=== PATIENT | female | born 1990 | race Caucasian/White ===

== ENCOUNTER 2025-06-01 15:49 | Outpatient (AMB) | payer OTHER, SELFPAY ==
--- NOTE | 2025-06-01 15:57 | MHC.PC.OV ---
Vital Signs 06/01/25 15:59 Height 5 ft 8.5 in Weight 163 lb 4 oz BMI 24.5 BP 122/74 Blood Pressure Location Lt brachial Position Sitting Pulse 67 Pulse Source Pulse Oximeter Temp 97.3 F Temp Source Temporal Artery Scan Pulse Oximetry (%) 98 Oxygen Delivery Method Room Air Intake Visit Reasons: New Patient depression Intake Note: Patient is a new patient here to establish care for Depression, Anxiety, Insomnia, Low testosterone, Chronic back pain. Transferring care from [facility]. Medical records have been requested and have not received. Bargain Table Clerk Required: No Family Service Caseworker: Not Required per policy Accompanied by: Self / Same As Patient Allergies No Known Allergies Allergy (Verified 06/01/25 16:04) Medication List - Last Reconciled 06/01/25 by Gab Vega MD buspirone 15 mg PO BID testosterone cypionate 40 mg IM QWEEK trazodone 100 mg PO BEDTIME venlafaxine ER 112.5 mg PO DAILY Tobacco use date assessed: 06/01/25 Dental Screening Dental Screen Date: 06/01/25 Did you have a dental visit in the last 12 months?: Yes Did you have a dental problem in the last 6 months where you did not have access to dental care?: No Was dental information given to patient?: Patient has dentist HPI HPI Comments History of Present Illness Details The patient is a 35-year-old transgender male presenting for a new patient visit to establish primary care. The primary reason for the visit is to obtain referrals for ongoing specialty care due to insurance requirements, as his primary insurance, [employer], requires a primary care provider referral to [facility] [place]. The patient has a history of depression and is managed on venlafaxine, trazodone, and buspirone. He receives medication management from a [facility] psychiatrist, Dr. Stanley Alexandre, and is also undergoing Dialectical Behavior Therapy (DBT) with Patrice Wilde at [facility] in [place], where he has completed about five sessions. The patient reports chronic lower back pain due to a prolonged injury. For this condition, he is engaged in physical therapy at the [facility] and receives acupuncture at [facility] in [place]. He receives hormonal therapy, including weekly testosterone injections, under the care of an kennel technician at the [facility]. The patient is an active duty member. He denies any history of smoking or marijuana use and reports occasional alcohol consumption. He reports being up-to-date with vaccinations and had laboratory tests performed at the [facility] two days prior to this visit, with labs typically drawn every six months. [facility] Surgical History (Updated 06/01/25 @ 16:10 by MARV Beard) History of hysterectomy Family History (Updated 06/01/25 @ 16:10 by MARV Beard) Other Mental health disorder Substance use disorder Social History (Updated 06/01/25 @ 16:10 by MARV Beard) Housing: House Alcohol intake: current Alcohol intake frequency: a few times a week Patient Tobacco Use Status: Never used Tobacco e-Cigarette/Vaping Use: Never Used Second Hand Smoke Exposure: No service: Yes ([employer]) Current occupational status: employed Cognitive needs: No Hearing needs: No Vision needs: No Questionnaire PHQ-9 Over the last 2 weeks, how often have you been bothered by any of the following problems? 1. Little interest or pleasure in doing things: nearly every day 2. Feeling down, depressed, or hopeless: nearly every day 3. Trouble falling or staying asleep, or sleeping too much: nearly every day 4. Feeling tired or having little energy: nearly every day 5. Poor appetite or overeating: nearly every day 6. Feeling bad about yourself - or that you are a failure or have let yourself or your family down: more than half the days 7. Trouble concentrating on things, such as reading the newspaper or watching television: nearly every day 8. Moving or speaking so slowly that other people could have noticed. Or the opposite - being so fidgety or restless that you have been moving around a lot more than usual: more than half the days 9. Thoughts that you would be better off or of hurting yourself in some way: not at all Total score: 22 Depression Screening Interpretation: Positive Depression Screening Follow-up: Existing condition and In treatment Depression Screening Done: Yes Source: Developed by Drs. Kush Alfaro, Elly Marshall, Edvin Urbina and colleagues, with an educational amanda from [employer]. Thrive Questionnaire Date Thrive assessed: 06/01/25 I am a: Patient What is your living situation today?: I have a steady place to live Within the past 12 months, did the food you bought not last and you didn't have the money to get more?: Never true Within the past 12 months, did you worry whether your food would run out before you got money to buy more?: Never true Do you have trouble paying for medicines?: No Do you have trouble getting transportation to medical appointments?: No Do you have trouble paying your heating and electricity bill?: No Do you have trouble taking care of your child, family member or friend?: No Do you have trouble with day-to-day activities such as bathing, preparing meals, shopping, managing finances, etc.?: No Are you currently unemployed and looking for a job?: No Are you interested in more education?: No Please select the resources that you would like help with: None Currently or been in a relationship where the following occur: No concerns reported THRIVE Score: 0 AUDIT C Alcohol Use Questionnaire (AUDIT-C) 1. How often do you have a drink containing alcohol?: 2-4 times a month 2. How many drinks containing alcohol do you have on a typical day when you are drinking?: 3 or 4 3. How often do you have six or more drinks on one occasion?: Less than monthly Total Score: 4 ZAHIDA-7 AMB Questionnaire ZAHIDA-7 Date ZAHIDA - 7 assessed: 06/01/25 Feeling nervous, anxious, or on edge: 3 = Nearly every day Not being able to stop or control worryin = Nearly every day Worrying too much about different things: 3 = Nearly every day Trouble relaxin = Nearly every day Being so restless that it is hard to sit still: 3 = Nearly every day Becoming easily annoyed or irritable: 3 = Nearly every day Feeling afraid as if something awful might happen: 2 = More than half the days Total ZAHIDA-7 score (0-4 normal; 5-9 mild; 10-14 moderate; 15-21 severe): 20 Source: Developed by Drs. Kush Alfaro, Elly Marshall, Edvin Urbina and colleagues, with an educational amanda from [employer]. Review of Systems Const Details: As per HPI Physical exam (Primary Care) Vital Signs: Last Vital Signs Temp 97.3 F 06/01/25 15:59 Pulse 67 06/01/25 15:59 BP 122/74 06/01/25 15:59 Pulse Ox 98 06/01/25 15:59 Oxygen Delivery Method Room Air 06/01/25 15:59 BMI result Body Mass Index 24.5 Tobacco/Smoking Status: Tobacco use Status Tobacco use date assessed 06/01/25 06/01/25 16:02 Patient Tobacco Use Status Never used Tobacco 06/01/25 16:10 e-Cigarette/Vaping Use Never Used 06/01/25 16:10 PHQ-9: PHQ-9 Score PHQ-9: Total score 22 06/01/25 16:08 Depression Screening Interpretation: Positive Depression Screening Follow-up: Existing condition and In treatment Thrive Assessment: Date of Thrive Assessment Date Thrive assessed 06/01/25 06/01/25 16:02 Currently or been in a relationship where the following occur: No concerns reported Const Other: Pertinent findings are in BOLD GENERAL APPEARANCE NAD, activity normal for age, well developed/ well nourished, no cyanosis, pallor, or diaphoresis. EYES lids/conjunctiva normal. EARS/NOSE/THROAT Mucous membranes moist, nares normal, lips/teeth normal uvula midline without oral pharyngeal erythema, exudate or swelling TMs normal bilaterally. No lymphangitis/lymphedema. HEAD/NECK normocephalic atraumatic, no facial trauma, neck is supple. RESPIRATORY respiratory effort normal, speaks in full sentences, no tripod position, no accessory muscle use. Lungs clear to auscultation without rhonchi, wheezes, rales CARDIAC Regular rate and rhythm, no edema. ABDOMINAL Soft, ND/NT. No evidence of fluid wave. No pulsatile masses on exam, rebound tenderness, Veras sign or pain over Mcburney's point. MUSCLES/EXTREMITIES No abnormal range of motion, no swelling. SKIN Warm, pink and dry. No rashes, dermatoses, petechiae or lesions. NEUROLOGICAL Speech is clear and appropriate. Normal level of consciousness. Gait and coordination are normal. 5/5 strength in all extremities. PSYCH Normal mood and affect. Judgement/competence is appropriate Coding Level of Care Code New Pt Level 4 (38250) Diagnoses Current moderate episode of major depressive disorder, unspecified whether recurrent F32.1 Depression Type: major depressive disorder Major depression recurrence: unspecified whether recurrent Active/Remission status: currently active Major depression episode severity: moderate Gender dysphoria F64.9 Health care maintenance Z00.00 Chronic midline low back pain without sciatica M54.50; G89.29 Chronicity: chronic Back pain laterality: midline Sciatica presence: without sciatica Time Spent (min) 30 Assessment & Plan Assessment & Plan (1) Depression: Code(s): F32.A - Depression, unspecified Category: Medical Qualifiers: Depression Type: major depressive disorder Major depression recurrence: unspecified whether recurrent Active/Remission status: currently active Major depression episode severity: moderate Qualified Code(s): F32.1 - Major depressive disorder, single episode, moderate Plan: - Continue current medications: venlafaxine, trazodone, and buspirone. - Place referral to the [place] for psychiatry to continue medication management with Dr. Stanley Alexandre. - Place referral to [facility] in [place] to continue Dialectical Behavior Therapy (DBT) with therapist Patrice Wilde. (2) Gender dysphoria: Comment: s/p Hormonal therapy Code(s): F64.9 - Gender identity disorder, unspecified Category: Medical Plan: - Continue weekly testosterone injections as prescribed. - Place referral to Endocrinology at the [facility] for continued management of hormonal therapy. (3) Health care maintenance: Code(s): Z00.00 - Encounter for general adult medical examination without abnormal findings Category: Medical Plan: CBC, CMP, Lipid panel, A1C, TSH w T4, vit D. recently done at the [facility]. Asked patient to provide us with recent [facility]. Shingles 2 doses when >50 yo. At 50. COVID: two doses. Next visit. Pneumococcal: >50 yo. 18-49 with CKD, lung disease, weakened immune system, Heart disease, DM, cochlear implant. NI. Flu vaccine: Next visit. Tdap: every 10 years. Next visit. Colonoscopy: 45-75. at 45. AAA: 65 -75. NI. CT lun - 80. NI. HIV: Next visit. HCV: Next visit. (4) Low back pain: Code(s): M54.50 - Low back pain, unspecified Category: Medical Qualifiers: Chronicity: chronic Back pain laterality: midline Sciatica presence: without sciatica Qualified Code(s): M54.50 - Low back pain, unspecified; G89.29 - Other chronic pain Plan: - [facility] to [facility] ongoing treatment. - Place referral for acupuncture to continue care at [facility] in [place]. Plan I have seen the patient today for a new patient visit to establish care. The main purpose of the visit was to obtain referrals for his ongoing specialty care, including psychiatry, therapy, physical therapy, endocrinology, and acupuncture, which are required by his insurance to continue seeing his providers at the [facility] and in the community. I explained that placing referrals to the [facility] can be difficult as it is a closed system, but I would submit them with detailed free-text notes. I advised him to let our office know if there are any issues with the referrals so we can address them. We will request his recent lab work from the [facility] and plan for a follow-up appointment in six months to ensure continuity of care. Orders: Orders PT Evaluation and Treatment Today M54.50 - Low back pain, unspecified Referrals Behavioral Health Referral F32.A - Depression, unspecified Accupuncture Referral M54.50 - Low back pain, unspecified Psychiatry Referral F32.A - Depression, unspecified Endocrinology Referral F64.9 - Gender identity disorder, unspecified
[2025-06-01 15:59] VITALS: BP 122/74; PULSE 67; TEMP 36.3; O2SAT 98; BMI 24.5
--- OUTSIDE RECORDS SUMMARY | 2025-06-01 18:31 | XMS_ITS | Patient Health Record ---
Author Organization [facility] Address [address] [place], [place] [id number] Care Team Providers Care Private Investigator Surveillance Name Role Phone Hetal Macario Primary Care Provider Arik Serra Unavailable [phone] Reason For Referral No Information Medications Medication SIG (Take, Route, Frequency, Duration) Notes Start Date End Date Status BD Luer-Lexie Syringe 25G X 5/8 1 SC Every week 03/09/2017 Active Testosterone Cypionate 200 MG/ML 0.4 ml Intramuscular Every week 09/13/2015 Active BD Luer-Lexie Syringe 21G X 1 as directed Every two weeks 09/13/2015 Active Problems Problem Type SNOMED Code ICD Code Onset Dates Problem Status W/U Status Risk Notes Problem Gender identity disorder ([id number]) 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) Active confirmed wishes to change to sc Plan Of Treatment Pending Test Test Name Order Date ESTRADIOL 09/08/2016 TESTOSTERONE TOTAL 12/12/2015 TESTOSTERONE TOTAL 03/09/2017 TESTOSTERONE TOTAL 09/08/2016 TESTOSTERONE TOTAL 09/13/2015 Estradiol 09/13/2015 Estradiol 03/09/2017 Estradiol 12/12/2015 CBC/Differential (No Platelet) 6 CBC/Differential (No Platelet) 7 CBC w/ Differential, w/ Platelet 017 Medical (General) History Medical History History ICD Code atrial fibrillation No anxiety disorder No arthritis No hiatal hernia No gout No asthma No depression No thyromegaly No carpal tunnel No neuropathy No seizures No hepatitis C No kidney stones No heart murmur No esophageal reflux No osteoporosis No irritable bowel syndrome No cancer, prostate No cancer, breast No sleep disorder, chronic No stroke (thrombotic) No Surgical History Surgery Date(Month/Year) hysterectomy bilateral oopherectomy 2015
== END 2025-06-01 16:42 | disposition home or self-care (01) ==
LOC: HO.HMCH 15:49
PROVIDERS: PCP Internal Medicine; Visit Provider Internal Medicine
DX: F32.1 Major depressive disorder, single episode, moderate (principal); F64.9 Gender identity disorder, unspecified; Z00.00 Encounter for general adult medical examination without abnormal findings; M54.50 Low back pain, unspecified; G89.29 Other chronic pain

== ENCOUNTER → 2025-06-01 15:49 | Outpatient (BNVA) | payer OTHER, SELFPAY | PROVIDERS: Visit Provider Internal Medicine | DX: F32.1 Major depressive disorder, single episode, moderate (principal); F64.9 Gender identity disorder, unspecified; Z13.31 Encounter for screening for depression; Z13.39 Encounter for screening examination for other mental health and behavioral disorders; M54.50 Low back pain, unspecified; G89.29 Other chronic pain | CPT/HCPCS: 96127; 99202 ==

== ENCOUNTER 2025-07-13 16:45 | Outpatient (AMB) | payer OTHER, SELFPAY ==
[2025-07-13 16:48] VITALS: BP 116/68; PULSE 64; RESP 18; O2SAT 99; BMI 25.2
--- NOTE | 2025-07-13 16:48 | A.OFFPC_ITS ---
Vital Signs 07/13/25 16:48 Height 5 ft 8.5 in Weight 168 lb 8 oz BMI 25.2 BP 116/68 Blood Pressure Location Lt brachial Position Sitting Respiration 18 Pulse 64 Pulse Source Pulse Oximeter Temp Source Temporal Artery Scan Pulse Oximetry (%) 99 Oxygen Delivery Method Room Air Intake Visit Reasons: FOLLOW UP ON BACK PAIN Quality Control Auditor Required: No Accompanied by: Self / Same As Patient Allergies No Known Allergies Allergy (Verified 07/13/25 16:48) Tobacco use date assessed: 07/13/25 Dental Screening Dental Screen Date: 07/13/25 Did you have a dental visit in the last 12 months?: Yes Did you have a dental problem in the last 6 months where you did not have access to dental care?: No Was dental information given to patient?: Patient has dentist HPI HPI Comments History of Present Illness Details The patient is a 35 year old transgender Male with PMH of MDD, back pain, and right hip pain. The patient presented today to get an extension of his medical profile related to physical fitness test at the [employer]. The patient suffers from a longstanding back and right hip injury (reported in [facility] records). He is engaged with physical therapy at the [facility] and receives acupuncture at [facility] in [place]. The patient was provided a similar profile from a [facility] provider (Nat Alicea) in 04/05/2025-07/05/2025. The patient reports worsening pain during physical activity especially during physical fitness test. He was also evaluated by his Psych team at the [facility] (Temitope Frazier and Caitlin Calderon), who reported that the patient's PTSD and major depressive disease would get worse if the patient gets engaged with physical fitness activity at his workplace. Their assessment was based on the patient's report of worsening symptoms during physical fitness test. Based on the patient prior profile (04/05/2025- 07/05/2025), current assessment provided by his psych team and his current report of worsening pain related to fitness activity we will extend the patient's profile for another 90 days. PFSH Surgical History History of hysterectomy Family History Other Mental health disorder Substance use disorder Social History Housing: House Alcohol intake: current Alcohol intake frequency: a few times a week Patient Tobacco Use Status: Never used Tobacco e-Cigarette/Vaping Use: Never Used Second Hand Smoke Exposure: No service: Yes ([employer]) Current occupational status: employed Cognitive needs: No Hearing needs: No Vision needs: No Questionnaire Thrive Questionnaire Date Thrive assessed: 07/13/25 I am a: Patient What is your living situation today?: I have a steady place to live Within the past 12 months, did the food you bought not last and you didn't have the money to get more?: Never true Within the past 12 months, did you worry whether your food would run out before you got money to buy more?: Never true Do you have trouble paying for medicines?: No Do you have trouble getting transportation to medical appointments?: No Do you have trouble paying your heating and electricity bill?: No Do you have trouble taking care of your child, family member or friend?: No Do you have trouble with day-to-day activities such as bathing, preparing meals, shopping, managing finances, etc.?: No Are you currently unemployed and looking for a job?: No Are you interested in more education?: No Please select the resources that you would like help with: None Currently or been in a relationship where the following occur: No concerns reported THRIVE Score: 0 ZAHIDA-7 AMB Questionnaire ZAHIDA-7 Date ZAHIDA - 7 assessed: 06/01/25 Source: Developed by Drs. Kush Alfaro, Elly Marshall, Edvin Urbina and colleagues, with an educational amanda from [employer]. Review of Systems Const Details: As per HPI. Physical exam (Primary Care) Vital Signs: Last Vital Signs Pulse 64 07/13/25 16:48 Resp 18 07/13/25 16:48 BP 116/68 07/13/25 16:48 Pulse Ox 99 07/13/25 16:48 Oxygen Delivery Method Room Air 07/13/25 16:48 BMI result Body Mass Index 25.2 Tobacco/Smoking Status: Tobacco use Status Tobacco use date assessed 07/13/25 07/13/25 16:54 Patient Tobacco Use Status Never used Tobacco 07/13/25 16:54 e-Cigarette/Vaping Use Never Used 07/13/25 16:54 Thrive Assessment: Date of Thrive Assessment Date Thrive assessed 07/13/25 07/13/25 16:54 Currently or been in a relationship where the following occur: No concerns reported Const Other: Pertinent findings are in BOLD GENERAL APPEARANCE NAD, activity normal for age, well developed/ well nourished, no cyanosis, pallor, or diaphoresis. EYES lids/conjunctiva normal. EARS/NOSE/THROAT Mucous membranes moist, nares normal, lips/teeth normal uvula midline without oral pharyngeal erythema, exudate or swelling TMs normal bilaterally. No lymphangitis/lymphedema. HEAD/NECK normocephalic atraumatic, no facial trauma, neck is supple. RESPIRATORY respiratory effort normal, speaks in full sentences, no tripod position, no accessory muscle use. Lungs clear to auscultation without rhonchi, wheezes, rales CARDIAC Regular rate and rhythm, no edema. ABDOMINAL Soft, ND/NT. No evidence of fluid wave. No pulsatile masses on exam, rebound tenderness, Veras sign or pain over Mcburney's point. MUSCLES/EXTREMITIES No abnormal range of motion, no swelling. SKIN Warm, pink and dry. No rashes, dermatoses, petechiae or lesions. NEUROLOGICAL Speech is clear and appropriate. Normal level of consciousness. Gait and coordination are normal. 5/5 strength in all extremities. PSYCH Normal mood and affect. Judgement/competence is appropriate Coding Level of Care Code Est Pt Level 4 (42266) Diagnoses Chronic midline low back pain without sciatica M54.50; G89.29 Chronicity: chronic Back pain laterality: midline Sciatica presence: without sciatica Right hip pain M25.551 Time Spent (min) 45 Assessment & Plan Assessment & Plan (1) Low back pain: Code(s): M54.50 - Low back pain, unspecified Category: Medical Qualifiers: Chronicity: chronic Back pain laterality: midline Sciatica presence: without sciatica Qualified Code(s): M54.50 - Low back pain, unspecified; G89.29 - Other chronic pain Plan: Patient reports history of low back pain. - This condition [facility] - Treatment plan: accupuncture, PT. - The patient's medical profile (04/05/2025- 07/05/2025) extended to 07/14/2025- 10/12/2024. - We will continue assesment every three months. (2) Right hip pain: Code(s): M25.551 - Pain in right hip Category: Medical Plan: Same as under low back pain. Plan Patient presented for extension of medical profile related to physical fitness test which was provided to the patient. The patient physical fitness test has been affecting the patient's mental health as reported in [facility] psychology assessment and his physical health as reported in his prior medical profile.
--- OUTSIDE RECORDS SUMMARY | 2025-07-13 19:48 | XMS_ITS | Patient Health Record ---
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
== END 2025-07-13 17:14 | disposition home or self-care (01) ==
LOC: HO.HMCH 16:45
PROVIDERS: PCP Internal Medicine; Visit Provider Internal Medicine
DX: M54.50 Low back pain, unspecified (principal); G89.29 Other chronic pain; M25.551 Pain in right hip

== ENCOUNTER → 2025-07-13 16:45 | Outpatient (BNVA) | payer OTHER, SELFPAY | PROVIDERS: PCP Internal Medicine; Visit Provider Internal Medicine | DX: M25.551 Pain in right hip (principal); M54.50 Low back pain, unspecified; G89.29 Other chronic pain | CPT/HCPCS: 99212 ==